=== PATIENT | female | born 2000 | race Caucasian/White ===

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

== ENCOUNTER 2020-07-23 18:25 | Emergency (ER) | payer MEDICARE ==
[~2020-07-23] VITALS: Ht 152.4 cm; Wt 66.0 kg
[2020-07-23] MEDS ORDERED: IBUPROFEN 400MG TABLET PO ONE (19:15)
[2020-07-23 19:24] VITALS: BP 140/97
[2020-07-23 19:32] LABS: BASOPHILS % 0.5 % (0.0-2.0); EOSINOPHILS % 0.5 % (0.0-5.0); HEMATOCRIT. 40.7 % (36.0-48.0); HEMOGLOBIN. 14.1 g/dL (12.0-16.0); LYMPHOCYTES % 16.2 % (20.0-50.0); MEAN CORPUSCULAR HEMOGLOBIN 28.7 pg (28.0-32.0); MEAN CORPUSCULAR VOLUME 82.5 fL (81.0-99.0); MONOCYTES % 4.4 % (2.0-8.0); NEUTROPHILS % 78.4 % (40.0-76.0); PLATELET 335 x1000/uL (130-400); RED BLOOD CELL COUNT 4.93 mill/uL (4.2-5.4); RED CELL DISTRIBUTION WIDTH 13.6 % (11.6-14.6)
[2020-07-23 19:36] LABS: CHLORIDE 109 mEq/L (98-107)
[2020-07-23 19:40] LABS: CLARITY URINE CLOUDY (CLEAR); COLOR URINE YELLOW (YELLOW); KETONES URINE TRACE (NEGATIVE); LEUKOCYTE ESTERASE URINE 2+ (NEGATIVE); NITRITE URINE NEGATIVE (NEGATIVE); OCCULT BLOOD URINE 2+ (NEGATIVE); PROTEIN URINE TRACE (NEGATIVE); UROBILINOGEN URINE 0.2 E.U./dL (0.2-1.0)
[2020-07-23] MEDS ORDERED: ONDANSETRON 4MG ODT PO ONE (19:45)
[2020-07-23] MEDS ORDERED: CEPH500C2 MT (20:42)
== END 2020-07-23 20:45 | disposition home or self-care (01) ==
LOC: ER 18:25
DX: N39.0 Urinary tract infection, site not specified (principal); N12 Tubulo-interstitial nephritis, not specified as acute or chronic
CPT/HCPCS: 36415; 76770; 80053; 81003; 82962; 83690; 85025; 87086; 99284; Q0162